=== PATIENT | male | born 1990 | race African-American/Black ===

== ENCOUNTER 2018-05-23 12:27 | Inpatient (IN) ==
[2018-05-24] MEDS ORDERED: carBAMazepine 200 MG Tablet PO ONE (09:00)
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
[2018-05-24] MEDS: carBAMazepine 200 MG Tablet PO SCH (21:49)
[2018-05-24] MEDS: Benztropine 2 MG Tablet PO SCH (21:49)
[2018-05-25] MEDS: carBAMazepine 200 MG Tablet PO SCH (08:44)
[2018-05-25] MEDS: Benztropine 2 MG Tablet PO SCH (08:46)
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
== END 2018-05-25 15:00 | disposition home or self-care (01) | DRG 885 ==
LOC: H270 14:32
PROVIDERS: ADMIT Psychiatry & Neurology Psychiatry; ATTEND Psychiatry & Neurology Psychiatry